=== PATIENT | male | born 1950 | race Caucasian/White ===

== ENCOUNTER 2016-06-24 14:19 | Emergency (ER) | payer MEDICARE, BC ==
[2016-06-24 14:29] VITALS: BP 168/81; PULSE 61; TEMP 98.1; BMI 36.6
--- NOTE | 2016-06-24 15:11 | DIRPT ---
CLINICAL DATA: Fell this morning face forward. Fell more on the left shoulder. Complaining of left shoulder pain. EXAM: LEFT SHOULDER - 2+ VIEW COMPARISON: None. FINDINGS: No convincing fractures. Glenohumeral joint is normally spaced and aligned. AC joint appears mildly widened, measuring 6 mm in width, but normally aligned. Mild spurring is noted at the AC joint. Soft tissues are unremarkable. IMPRESSION: 1. No acute fracture or dislocation. 2. Mild widening of the AC joint without malalignment. This may reflect a grade 1 AC joint sprain. Electronically Signed By: Shlomo Matthew M.D. On: 06/24/2016 15:09
--- NOTE | 2016-06-24 15:14 | EDPRACDOC ---
- General Information Chief Complaint: Shoulder Pain Stated Complaint: FELL INJURED LT SHOULDER Time Seen by Provider: 06/24/16 15:11 Information Source: Patient Mode of Arrival: Car Home Medications: Home Medications Apixaban [Eliquis] 5 mg PO BID 10/25/14 Olmesartan/Hydrochlorothiazide [Benicar Hct 20-12.5 mg Tablet] 1 each PO DAILY 08/21/15 Pravastatin Sodium [Pravachol] 80 mg PO DAILY 08/21/15 Furosemide [Lasix] 20 mg PO DAILY 09/17/15 Levalbuterol HCl [Xopenex Concentrate] 1.25 mg IH .TID Q6-8H APART PRN 09/17/15 Levalbuterol Tartrate [Xopenex Hfa] 2 puff IH TID PRN 09/17/15 Amiodarone [Cordarone, Pacerone] 200 mg PO DAILY #30 tablet 09/21/15 Aspirin (Enteric Coated) [Halfprin] 81 mg PO DAILYWM #100 tablet 09/21/15 Carvedilol [Coreg] 3.125 mg PO BID #60 tablet 09/21/15 Zolpidem Tartrate [Ambien] 10 mg PO HS PRN #14 tablet 09/21/15 Hydrocodone Bit/Acetaminophen [Hydrocodon-Acetaminophen 5-325] 1 tab PO Q6 PRN # 20 tab 06/24/16 Allergies/Adverse Reactions: Allergies Allergy/AdvReac Type Severity Reaction Status Date / Time prednisone Allergy See Verified 06/24/16 14:27 Comments - History of Present Illness Onset: this AM HPI: PT STATES HE LOST HIS BALANCE AT HOME, FELL ONTO LEFT SIDE, COMPLAINS OF THROBBING PAIN IN LEFT SHOULDER, WORSE WITH MOVEMENT, TOOK MOTRIN AT HOME WITHOUT RELIEF. PT DENIES OTHER INJURY, NO NECK OR BACK PAIN, NO LOC, NO HEADACHE OR DIZZINESS. Description: Reports: At Rest Location: Reports: Left, Lateral, Anterior Circumstances: Reports: Fall Relevant History: Reports: None Dominant Hand: Right Pain Severity: Moderate Able to Move Shoulder?: Yes Associated Signs & Symptoms: Denies: Numbness, Chest pain, Neck pain, Arm pain, Elbow pain ED Past Medical History - History Reviewed Yes Nurses notes reviewed and agree except as marked - Patient Medical History Cardiac History: Reports: Coronary Artery Disease, Atrial Fibrillation, Hypertension, Congestive Heart Failure (DIASTOLIC), Heart Attack, Cardiac Catheterization, CABG (2000), Hypercholesterolemia Respiratory History: Reports: COPD (QUESTIONABLE) Psychological History: Denies: Depression, Substance Use Disorder Surgical History: Reports: Cholecystectomy, CABG (2000), Cardiac Catheterization , Tonsillectomy/Adnoidectomy - Family Medical History Reports: Diabetes (SISTER), Cancer (Mother: breast cancer), Cardiac Disorders ( Father: OR and CABG in his 50s. Brother Atrial fib dx in his 40s.) - Social Medical History Smoking Status: Former smoker Social History: Denies: Substance Use Disorder EDM Review of Systems - Review of Systems Gastrointestinal: negative: Nausea, Vomiting Neurological: negative: Dizziness, Headache, Numbness, Weakness Musculoskeletal: Shoulder Integumentary: No Symptoms Reported - Physical Exam Constitutional: Alert (Awake), No apparent distress Oriented to: Time, Person, Place Last recorded Vital Signs: Last Vital Signs Temp 98.1 F 06/24/16 14:23 Pulse 61 06/24/16 14:23 Resp 18 06/24/16 14:23 BP 168/81 06/24/16 14:23 Pulse Ox 95 06/24/16 14:23 Oxygen Pulse Oxygen Saturation 95 O2 Device Room Air Oxygen Flow Rate Fraction of Inspired Oxygen ( FIO2) - HEENT Head: Normal ( normocephalic) Neck: Normal (FROM, trachea at midline) - Musculoskeletal Back: negative: Thoracic TTP, Lumbar TTP - Integumentary Skin: Normal, Warm, Dry Lymphatics: Normal (no adenopathy) - Neurologic Memory Impaired: Normal Motor Function: Normal (Normal tone, Pulses 2+ No cyanosis or edema, FROM) Cranial Nerve: Normal (CN II-X11 intact sensation, strength 5/5) Cerebellar: Normal Mood Description: Normal Perception: Normal ED Shoulder Problem Exam - Musculoskeletal Clavicle: negative: Swelling, Ecchymosis, Deformity, Tender, Crepitance Shoulder: Limited ROM, Tender. negative: Swelling, Ecchymosis, Deformity, Dislocation Arm: Normal. negative: Swelling, Deformity Distal Function/Circulation: Normal, Capillary Refill. negative: Motor Deficit , Pulse Deficit, Sensory Deficit - Differential Diagnosis AC separation, Contusion, Dislocation, Humerus fracture/open, Clavicle fracture/ open - Diagnostic Imaging LEFT SHOULDER Image interpreted by: Radiologist LEFT SHOULDER - 2+ VIEW COMPARISON: None. FINDINGS: No convincing fractures. Glenohumeral joint is normally spaced and aligned. AC joint appears mildly widened, measuring 6 mm in width, but normally aligned. Mild spurring is noted at the AC joint. Soft tissues are unremarkable. IMPRESSION: 1. No acute fracture or dislocation. 2. Mild widening of the AC joint without malalignment. This may reflect a grade 1 AC joint sprain. Decision Time to Discharge: 15:14 - Departure Disposition: Home Condition: Stable Final Diagnosis: Separation of left acromioclavicular joint, type 1 Qualifiers: Encounter type: initial encounter Qualified Code(s): S43.102A - Unspecified dislocation of left acromioclavicular joint, initial encounter Instructions: Shoulder Sprain (ED) Education/Counseling Given To: Patient Education/Counseling Given Regarding: Diagnosis, Treatment, Prognosis, Follow Up Referrals: Norris Osman MD [Staff Physician] - One Week Prescriptions: Hydrocodone Bit/Acetaminophen [Hydrocodon-Acetaminophen 5-325] 1 tab PO Q6 PRN # 20 tab PRN Reason: Pain Additional Instructions: APPLY WARM COMPRESSES TO YOUR SHOULDER 20 MINS AT A TIME 4 - 5 TIMES DAILY NEEDED FOR PAIN, WEAR SLING NEEDED FOR COMFORT.
== END 2016-06-24 15:34 | disposition home or self-care (01) ==
LOC: EDMC 14:19
DX: S43.102A Unspecified dislocation of left acromioclavicular joint, initial encounter (principal); W19.XXXA Unspecified fall, initial encounter
CPT/HCPCS: 99282